=== PATIENT | male | born 1990 ===

== ENCOUNTER 2018-07-28 16:40 | Emergency (ER) | payer OTHER ==
[2018-07-28 17:09] VITALS: BP 128/77
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
== END 2018-07-28 18:10 | disposition home or self-care (01) ==
LOC: UCEAST 16:40
DX: S20.211A Contusion of right front wall of thorax, initial encounter (principal); W50.0XXA Accidental hit or strike by another person, initial encounter; Y92.9 Unspecified place or not applicable; Z88.1 Allergy status to other antibiotic agents; F17.200 Nicotine dependence, unspecified, uncomplicated
CPT/HCPCS: 99201; G0463

== ENCOUNTER 2018-11-13 11:46 | Emergency (ER) | payer OTHER ==
[2018-11-13 12:00] VITALS: BP 111/73
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
== END 2018-11-13 12:25 | disposition home or self-care (01) ==
LOC: UCEAST 11:46
DX: G56.31 Lesion of radial nerve, right upper limb (principal); F17.210 Nicotine dependence, cigarettes, uncomplicated
CPT/HCPCS: 99212; G0463